=== PATIENT | female | born 1960 | race Caucasian/White ===

== ENCOUNTER 2021-05-10 14:33 | Emergency (ER) | payer OTHER ==
[~2021-05-10] VITALS: Ht 165.1 cm; Wt 81.6 kg
[2021-05-10 18:14] LABS: BASO % 0.3 % (0.0-1.0); EOS # 0.5 10*3/uL (0.0-0.4); EOS % 3.9 % (1.0-4.0); HEMATOCRIT 42.8 % (37.0-47.0); LYMPH # 1.8 10*3/uL (1.3-4.4); LYMPH % 15.3 % (27.0-41.0); MEAN CELL VOLUME 83.9 fl (81.0-99.0); MEAN CORPUSCULAR HGB 26.5 pg (27.0-31.0); MEAN CORPUSCULAR HGB CONC 31.5 g/dl (33.0-37.0); MEAN PLATELET VOLUME 9.2 fl (9.6-12.3); MONO # 0.6 10*3/uL (0.1-1.0); MONO % 5.3 % (3.0-9.0); NEUT # 8.7 10*3/uL (2.3-7.9); NEUT % 74.8 % (47.0-73.0); PLATELET COUNT AUTOMATED 318 10*3/uL (130-400); RED CELL DISTRI WIDTH 13.1 % (0-14.5); WHITE BLOOD COUNT 11.6 10*3/uL (4.8-10.8)
[2021-05-10 18:28] LABS: ALBUMIN 3.9 gm/dl (3.1-4.5); ALKALINE PHOSPHATASE 96 U/L (45-117); BUN 12 mg/dl (7-24); CHLORIDE 106 mmol/L (98-107); CREATININE 0.88 mg/dL (0.55-1.02); LIPASE 86 U/L (73-393); POTASSIUM 3.7 mmol/L (3.5-5.1); SGOT/AST 9 IU/L (3-35); SGPT/ALT 22 U/L (12-78); SODIUM 133 mmol/L (136-145); TOTAL PROTEIN 7.4 gm/dL (6.4-8.2)
== END 2021-05-10 21:31 | disposition home or self-care (01) ==
LOC: ED 14:33
PROVIDERS: Physician Assistant
DX: R19.7 Diarrhea, unspecified (principal); R53.1 Weakness; Z88.2 Allergy status to sulfonamides; Z90.711 Acquired absence of uterus with remaining cervical stump; Z98.890 Other specified postprocedural states

== ENCOUNTER 2021-06-02 16:18 | Inpatient (IN) | payer OTHER ==
[~2021-06-02] VITALS: Ht 165.1 cm; Wt 81.6 kg
[2021-06-02 16:18] VITALS: BP 144/86
[2021-06-02 19:51] LABS: BASO % 0.2 % (0.0-1.0); EOS # 0.3 10*3/uL (0.0-0.4); HEMATOCRIT 39.5 % (37.0-47.0); LYMPH # 1.3 10*3/uL (1.3-4.4); LYMPH % 10.1 % (27.0-41.0); MEAN CELL VOLUME 83.2 fl (81.0-99.0); MEAN CORPUSCULAR HGB 26.5 pg (27.0-31.0); MEAN CORPUSCULAR HGB CONC 31.9 g/dl (33.0-37.0); MEAN PLATELET VOLUME 9.4 fl (9.6-12.3); MONO # 0.5 10*3/uL (0.1-1.0); MONO % 3.7 % (3.0-9.0); NEUT # 10.9 10*3/uL (2.3-7.9); NEUT % 83.7 % (47.0-73.0); PLATELET COUNT AUTOMATED 343 10*3/uL (130-400); RED BLOOD COUNT 4.75 10*6/uL (4.10-5.10); RED CELL DISTRI WIDTH 13.3 % (0-14.5)
[2021-06-02 20:05] LABS: ALKALINE PHOSPHATASE 92 U/L (45-117); BUN 12 mg/dl (7-24); CHLORIDE 102 mmol/L (98-107); CREATININE 0.83 mg/dL (0.55-1.02); POTASSIUM 4.5 mmol/L (3.5-5.1); SGOT/AST 15 IU/L (3-35); SGPT/ALT 25 U/L (12-78); SODIUM 134 mmol/L (136-145); TOTAL PROTEIN 7.2 gm/dL (6.4-8.2)
[2021-06-02] MEDS ORDERED: OXYBUTYNIN ER15 MG PO (21:14)
[2021-06-02] MEDS ORDERED: PANTOPRAZOLE SO40 MG PO (21:15)
[2021-06-02] MEDS ORDERED: ROSUVASTATIN CA10 MG PO (21:15)
[2021-06-02] MEDS ORDERED: SERTRALINE HYD100 MG PO (21:16)
[2021-06-02] MEDS ORDERED: METFORMIN HYD1000 MG PO (21:16)
[2021-06-02] MEDS ORDERED: ALOGLIPTIN25 MG PO (21:17)
[2021-06-03] VITALS (7 sets, daily range): BP systolic 128–145; BP diastolic 57–78
[2021-06-03 05:20] LABS: ALBUMIN 3.5 gm/dl (3.1-4.5); ALKALINE PHOSPHATASE 80 U/L (45-117); BUN 13 mg/dl (7-24); CHLORIDE 103 mmol/L (98-107); SGOT/AST 11 IU/L (3-35); SGPT/ALT 20 U/L (12-78); SODIUM 135 mmol/L (136-145); TOTAL PROTEIN 6.5 gm/dL (6.4-8.2)
[2021-06-03 06:11] LABS: BASO % 0.3 % (0.0-1.0); EOS % 11.6 % (1.0-4.0); HEMATOCRIT 36.7 % (37.0-47.0); LYMPH # 2.1 10*3/uL (1.3-4.4); LYMPH % 22.9 % (27.0-41.0); MEAN CELL VOLUME 85.5 fl (81.0-99.0); MEAN CORPUSCULAR HGB 26.6 pg (27.0-31.0); MEAN CORPUSCULAR HGB CONC 31.1 g/dl (33.0-37.0); MEAN PLATELET VOLUME 9.9 fl (9.6-12.3); MONO # 0.7 10*3/uL (0.1-1.0); MONO % 7.6 % (3.0-9.0); NEUT # 5.1 10*3/uL (2.3-7.9); NEUT % 57.3 % (47.0-73.0); PLATELET COUNT AUTOMATED 281 10*3/uL (130-400); RED BLOOD COUNT 4.29 10*6/uL (4.10-5.10); RED CELL DISTRI WIDTH 13.6 % (0-14.5)
[2021-06-04] VITALS: BP 146/68
[2021-06-04 06:02] LABS: BASO % 0.6 % (0.0-1.0); EOS # 1.1 10*3/uL (0.0-0.4); EOS % 15.9 % (1.0-4.0); LYMPH % 28.9 % (27.0-41.0); MEAN CELL VOLUME 86.1 fl (81.0-99.0); MEAN CORPUSCULAR HGB 26.6 pg (27.0-31.0); MEAN CORPUSCULAR HGB CONC 30.8 g/dl (33.0-37.0); MEAN PLATELET VOLUME 9.6 fl (9.6-12.3); MONO # 0.5 10*3/uL (0.1-1.0); MONO % 7.8 % (3.0-9.0); NEUT # 3.2 10*3/uL (2.3-7.9); NEUT % 46.5 % (47.0-73.0); PLATELET COUNT AUTOMATED 246 10*3/uL (130-400); RED BLOOD COUNT 4.18 10*6/uL (4.10-5.10); RED CELL DISTRI WIDTH 13.5 % (0-14.5); WHITE BLOOD COUNT 6.8 10*3/uL (4.8-10.8)
[2021-06-04 06:07] LABS: BUN 13 mg/dl (7-24); CHLORIDE 100 mmol/L (98-107); CREATININE 0.85 mg/dL (0.55-1.02); POTASSIUM 4.2 mmol/L (3.5-5.1); SODIUM 133 mmol/L (136-145)
[2021-06-04 08:00] VITALS: BP 114/65
[2021-06-04] MEDS ORDERED: HYDROCODONE-AC1 EAC1 PO (11:47)
[2021-06-04] MEDS ORDERED: VITAMIN D350 MC2 PO (11:47)
[2021-06-04 12:00] VITALS: BP 133/66
== END 2021-06-04 13:49 | disposition home or self-care (01) | DRG 563 ==
LOC: ED 16:18 → 4E 19:44 → EDHOLD 19:44 → 4E 06-03 19:02 → EDHOLD 06-03 19:02 → 4E 06-03 20:21
PROVIDERS: Emergency Medicine; Internal Medicine; ADMIT Emergency Medicine; ATTEND Emergency Medicine
DX: S82.041A Displaced comminuted fracture of right patella, initial encounter for closed fracture (principal); E87.1 Hypo-osmolality and hyponatremia; N32.81 Overactive bladder; R26.2 Difficulty in walking, not elsewhere classified; E11.65 Type 2 diabetes mellitus with hyperglycemia; F32.9 Major depressive disorder, single episode, unspecified; K21.9 Gastro-esophageal reflux disease without esophagitis; E78.5 Hyperlipidemia, unspecified; D64.9 Anemia, unspecified; W18.30XA Fall on same level, unspecified, initial encounter; Z90.710 Acquired absence of both cervix and uterus; Z88.2 Allergy status to sulfonamides; Z79.899 Other long term (current) drug therapy; Y93.89 Activity, other specified; Y92.89 Other specified places as the place of occurrence of the external cause; Y99.8 Other external cause status; Z68.29 Body mass index [BMI] 29.0-29.9, adult

== ENCOUNTER 2021-07-10 21:28 | Emergency (ER) | payer OTHER ==
[~2021-07-10] VITALS: Ht 165.1 cm; Wt 81.6 kg
[~2021-07-10 21:28] MED LIST: ALOGLIPTIN25 MG PO; HYDROCODONE-AC1 EAC1 PO; METFORMIN HYD1000 MG PO; OXYBUTYNIN ER15 MG PO; PANTOPRAZOLE SO40 MG PO; ROSUVASTATIN CA10 MG PO; SERTRALINE HYD100 MG PO; VITAMIN D350 MC2 PO
[2021-07-10 22:08] LABS: BILIRUBIN Negative (Negative); BLOOD Trace-Lysed (Negative); CLARITY Cloudy (Clear); COLOR Yellow (Yellow); GLUCOSE Trace (Negative); KETONE 1+ (Negative); LEUKO ESTERASE 3+ (Negative); NITRITE Negative (Negative); PH 5.5 (4.5-8.0); SPECIFIC GRAVITY 1.015 (1.001-1.030)
[2021-07-10] MEDS ORDERED: CEFUROXIME AXE500 MG PO (23:05)
[2021-07-10 23:09] LABS: BACTERIA 2+; RBC 16-20 rbc/hpf (0-2); WBC 41-50 wbc/hpf (0-5)
== END 2021-07-10 23:30 | disposition home or self-care (01) ==
LOC: ED 21:28
PROVIDERS: Physician Assistant
DX: N39.0 Urinary tract infection, site not specified (principal); Z88.2 Allergy status to sulfonamides; Z79.899 Other long term (current) drug therapy

== ENCOUNTER 2021-12-21 18:15 | Emergency (ER) | payer OTHER ==
[~2021-12-21] VITALS: Wt 78.9 kg
[~2021-12-21 18:15] MED LIST changes: +CEFUROXIME AXE500 MG PO
== END 2021-12-21 18:52 | disposition home or self-care (01) ==
LOC: ED 18:15
DX: S61.012A Laceration without foreign body of left thumb without damage to nail, initial encounter (principal); Z98.890 Other specified postprocedural states; Z90.710 Acquired absence of both cervix and uterus; Z79.899 Other long term (current) drug therapy; Z88.2 Allergy status to sulfonamides; W26.0XXA Contact with knife, initial encounter; Y93.89 Activity, other specified; Y92.89 Other specified places as the place of occurrence of the external cause; Y99.8 Other external cause status

== ENCOUNTER 2022-03-15 19:26 | Emergency (ER) | payer OTHER ==
[~2022-03-15] VITALS: Ht 165.1 cm; Wt 80.3 kg
[2022-03-15 20:40] LABS: BASO % 0.4 % (0.0-1.0); EOS # 0.5 10*3/uL (0.0-0.4); EOS % 6.3 % (1.0-4.0); HEMATOCRIT 33.1 % (37.0-47.0); LYMPH # 2.4 10*3/uL (1.3-4.4); LYMPH % 29.2 % (27.0-41.0); MEAN CORPUSCULAR HGB 27.4 pg (27.0-31.0); MEAN CORPUSCULAR HGB CONC 32.6 g/dl (33.0-37.0); MEAN PLATELET VOLUME 9.4 fl (9.6-12.3); MONO # 0.6 10*3/uL (0.1-1.0); MONO % 7.3 % (3.0-9.0); NEUT # 4.6 10*3/uL (2.3-7.9); NEUT % 56.6 % (47.0-73.0); PLATELET COUNT AUTOMATED 268 10*3/uL (130-400); RED BLOOD COUNT 3.94 10*6/uL (4.10-5.10); RED CELL DISTRI WIDTH 13.2 % (0-14.5); WHITE BLOOD COUNT 8.1 10*3/uL (4.8-10.8)
[2022-03-15 20:49] LABS: BILIRUBIN Negative (Negative); BLOOD Negative (Negative); CLARITY Clear (Clear); COLOR Yellow (Yellow); GLUCOSE Negative (Negative); KETONE Negative (Negative); LEUKO ESTERASE Trace (Negative); NITRITE Negative (Negative); PH 6.5 (4.5-8.0); UROBILINOGEN 0.2 E.U./dl (0.0-1.0)
[2022-03-15 20:59] LABS: CREATININE 1.12 mg/dL (0.55-1.02); POTASSIUM 4.2 mmol/L (3.5-5.1); TOTAL PROTEIN 6.6 gm/dL (6.4-8.2)
[2022-03-15 21:03] LABS: BACTERIA TRACE; WBC 0-2 wbc/hpf (0-5)
== END 2022-03-16 02:05 | disposition home or self-care (01) ==
LOC: ED 19:26
PROVIDERS: Emergency Medicine
DX: R10.9 Unspecified abdominal pain (principal); R11.10 Vomiting, unspecified; E11.9 Type 2 diabetes mellitus without complications; K21.9 Gastro-esophageal reflux disease without esophagitis; E78.5 Hyperlipidemia, unspecified; Z79.899 Other long term (current) drug therapy; Z88.2 Allergy status to sulfonamides

== ENCOUNTER 2022-06-03 14:04 | Emergency (ER) | payer OTHER ==
[~2022-06-03] VITALS: Ht 165.1 cm; Wt 77.1 kg
[2022-06-03] MEDS ORDERED: CLINDAMYCIN HC300 MG PO (14:26)
== END 2022-06-03 14:40 | disposition home or self-care (01) ==
LOC: ED 14:04
DX: K08.89 Other specified disorders of teeth and supporting structures (principal); Z88.2 Allergy status to sulfonamides; Z79.899 Other long term (current) drug therapy; Z90.710 Acquired absence of both cervix and uterus; Z98.890 Other specified postprocedural states

== ENCOUNTER 2024-04-21 11:12 | Emergency (ER) | payer MEDICARE ==
[~2024-04-21] VITALS: Ht 165.1 cm; Wt 76.2 kg
[~2024-04-21 11:12] MED LIST changes: +CLINDAMYCIN HC300 MG PO
[2024-04-21 12:31] LABS: BASO % 0.5 % (0.0-1.0); EOS # 0.2 10*3/uL (0.0-0.4); EOS % 2.2 % (1.0-4.0); HEMATOCRIT 37.6 % (37.0-47.0); LYMPH # 1.7 10*3/uL (1.3-4.4); LYMPH % 20.2 % (27.0-41.0); MEAN CELL VOLUME 86.6 fl (81.0-99.0); MEAN CORPUSCULAR HGB 27.2 pg (27.0-31.0); MEAN CORPUSCULAR HGB CONC 31.4 g/dl (33.0-37.0); MONO # 0.6 10*3/uL (0.1-1.0); MONO % 7.1 % (3.0-9.0); NEUT # 5.7 10*3/uL (2.3-7.9); NEUT % 69.6 % (47.0-73.0); PLATELET COUNT AUTOMATED 250 10*3/uL (130-400); RED BLOOD COUNT 4.34 10*6/uL (4.10-5.10); RED CELL DISTRI WIDTH 13.4 % (0-14.5); WHITE BLOOD COUNT 8.2 10*3/uL (4.8-10.8)
[2024-04-21 12:47] LABS: POTASSIUM 4.5 mmol/L (3.4-5.1)
[2024-04-21 12:48] LABS: ACT PARTIAL THROMBO TIME 23.4 SECONDS (20.0-32.1)
== END 2024-04-21 13:42 | disposition home or self-care (01) ==
LOC: ED 11:12
PROVIDERS: Nurse Practitioner
DX: S09.8XXA Other specified injuries of head, initial encounter (principal); M54.2 Cervicalgia; E11.9 Type 2 diabetes mellitus without complications; J45.909 Unspecified asthma, uncomplicated; K21.9 Gastro-esophageal reflux disease without esophagitis; F32.A Depression, unspecified; Z88.2 Allergy status to sulfonamides; Z90.710 Acquired absence of both cervix and uterus; Z98.890 Other specified postprocedural states; W01.198A Fall on same level from slipping, tripping and stumbling with subsequent striking against other object, initial encounter; Y93.89 Activity, other specified; Y92.89 Other specified places as the place of occurrence of the external cause; Y99.8 Other external cause status

== ENCOUNTER 2024-05-02 14:48 | Emergency (ER) | payer MEDICARE ==
[~2024-05-02] VITALS: Wt 76.2 kg
[~2024-05-02 14:48] MED LIST changes: +FLUONAZOLE150 M1 PO; +MACROBID100 M1 PO; +PYRIDIUM200 M1 PO
[2024-05-02 16:40] LABS: BILIRUBIN 1+ (Negative); BLOOD Negative (Negative); CLARITY Clear (Clear); COLOR Dark Yellow (Yellow); GLUCOSE 3+ (Negative); KETONE Trace (Negative); LEUKO ESTERASE Negative (Negative); NITRITE Positive (Negative); PH 5.5 (4.5-8.0)
[2024-05-02 16:42] LABS: BASO # 0.1 10*3/uL (0.0-0.1); BASO % 0.6 % (0.0-1.0); EOS # 0.2 10*3/uL (0.0-0.4); EOS % 1.9 % (1.0-4.0); HEMATOCRIT 38.6 % (37.0-47.0); LYMPH # 1.7 10*3/uL (1.3-4.4); MEAN CELL VOLUME 86.2 fl (81.0-99.0); MEAN CORPUSCULAR HGB CONC 31.3 g/dl (33.0-37.0); MEAN PLATELET VOLUME 9.3 fl (9.6-12.3); MONO # 0.6 10*3/uL (0.1-1.0); MONO % 6.1 % (3.0-9.0); NEUT # 7.4 10*3/uL (2.3-7.9); PLATELET COUNT AUTOMATED 332 10*3/uL (130-400); RED BLOOD COUNT 4.48 10*6/uL (4.10-5.10); RED CELL DISTRI WIDTH 13.2 % (0-14.5)
[2024-05-02 16:48] LABS: RBC 0-2 rbc/hpf (0-2)
[2024-05-02 16:59] LABS: POTASSIUM 3.6 mmol/L (3.4-5.1)
[2024-05-02] MEDS ORDERED: CEPHALEXIN500 M1 PO (17:12)
[2024-05-02] MEDS ORDERED: CEPHALEXIN 500 MG 2 CAP ED PACK PO SCH (17:15)
== END 2024-05-02 17:19 | disposition home or self-care (01) ==
LOC: ED 14:48
PROVIDERS: Emergency Medicine
DX: N39.0 Urinary tract infection, site not specified (principal); R30.0 Dysuria; E87.1 Hypo-osmolality and hyponatremia; Z88.2 Allergy status to sulfonamides; F32.A Depression, unspecified; K21.9 Gastro-esophageal reflux disease without esophagitis; E11.65 Type 2 diabetes mellitus with hyperglycemia; E78.5 Hyperlipidemia, unspecified; D64.9 Anemia, unspecified; E11.22 Type 2 diabetes mellitus with diabetic chronic kidney disease; N18.31 Chronic kidney disease, stage 3a; J45.909 Unspecified asthma, uncomplicated; Z90.710 Acquired absence of both cervix and uterus; Z98.890 Other specified postprocedural states

== ENCOUNTER 2024-06-06 22:35 | Emergency (ER) | payer MEDICARE ==
[~2024-06-06] VITALS: Ht 165.1 cm; Wt 76.2 kg
[~2024-06-06 22:35] MED LIST changes: +CEPHALEXIN500 M1 PO
[2024-06-06] MEDS ORDERED: Acetaminophen/Oxycodone 5 MG/325 MG TABLET PO ONE (23:15)
[2024-06-06] MEDS ORDERED: PENICILLIN V POTASSIUM 500 MG TAB PO ONE (23:15)
[2024-06-06] MEDS ORDERED: Ondansetron Hydrochloride 4 MG TAB SL ONE (23:15)
[2024-06-06] MEDS ORDERED: PENICILLIN VK500 MG PO (23:24)
== END 2024-06-07 00:56 | disposition home or self-care (01) ==
LOC: ED 22:35
DX: K02.9 Dental caries, unspecified (principal); E11.9 Type 2 diabetes mellitus without complications; J45.909 Unspecified asthma, uncomplicated; K21.9 Gastro-esophageal reflux disease without esophagitis; F32.A Depression, unspecified; Z88.2 Allergy status to sulfonamides; Z90.710 Acquired absence of both cervix and uterus; Z98.890 Other specified postprocedural states

== ENCOUNTER → 2024-07-17 | Outpatient (CLI) | payer MEDICARE ==
[~2024-07-17] MED LIST changes: +PENICILLIN VK500 MG PO
[2024-07-17 08:46] LABS: BASO # 0.1 10*3/uL (0.0-0.1); BASO % 1.3 % (0.0-1.0); EOS # 0.4 10*3/uL (0.0-0.4); EOS % 6.4 % (1.0-4.0); HEMATOCRIT 38.4 % (37.0-47.0); LYMPH # 1.4 10*3/uL (1.3-4.4); LYMPH % 23.5 % (27.0-41.0); MEAN CELL VOLUME 85.5 fl (81.0-99.0); MEAN CORPUSCULAR HGB 26.9 pg (27.0-31.0); MEAN CORPUSCULAR HGB CONC 31.5 g/dl (33.0-37.0); MEAN PLATELET VOLUME 9.1 fl (9.6-12.3); MONO # 0.4 10*3/uL (0.1-1.0); MONO % 5.9 % (3.0-9.0); NEUT # 3.9 10*3/uL (2.3-7.9); NEUT % 62.7 % (47.0-73.0); PLATELET COUNT AUTOMATED 312 10*3/uL (130-400); RED BLOOD COUNT 4.49 10*6/uL (4.10-5.10); RED CELL DISTRI WIDTH 13.4 % (0-14.5); WHITE BLOOD COUNT 6.1 10*3/uL (4.8-10.8)
[2024-07-17 09:35] LABS: POTASSIUM 4.2 mmol/L (3.4-5.1); TOTAL PROTEIN 6.9 gm/dL (6.0-8.0)
== END | disposition home or self-care (01) ==
LOC: LAB 08:06
PROVIDERS: ATTEND Family Medicine
DX: E87.1 Hypo-osmolality and hyponatremia (principal); E11.9 Type 2 diabetes mellitus without complications; D50.9 Iron deficiency anemia, unspecified